=== PATIENT | male | born 1950 | race African-American/Black ===

== ENCOUNTER 2023-03-05 23:29 | Emergency (ER) | payer OTHER ==
[~2023-03-05] VITALS: Ht 177.8 cm; Wt 75.0 kg
[2023-03-06 00:11] LABS: BASOPHILS % 0.3 % (0.0-2.0); HEMATOCRIT. 41.3 % (42.0-52.0); HEMOGLOBIN. 13.9 g/dL (14.0-18.0); LYMPHOCYTES % 15.1 % (20.0-50.0); MEAN CORPUSCULAR HEMOGLOBIN 31.3 pg (28.0-32.0); MEAN CORPUSCULAR VOLUME 92.7 fL (80.0-94.0); MEAN PLATELET VOLUME 8.3 fl (7.4-10.4); MONOCYTES % 11.6 % (2.0-8.0); PLATELET 184 x1000/uL (130-400); RED BLOOD CELL COUNT 4.45 mill/uL (4.7-6.1); RED CELL DISTRIBUTION WIDTH 14.3 % (11.6-14.6)
[2023-03-06 00:13] LABS: CHLORIDE 103 mEq/L (98-107)
[2023-03-06 01:11] LABS: INR 1.5; PARTIAL THROMBOPLASTIN TIME 38.2 sec (23.4-31.0); PROTHROMBIN TIME 15.4 sec (9.6-11.0)
[2023-03-06 05:18] VITALS: BP 121/64
== END 2023-03-06 05:34 | disposition short-term general hospital (02) ==
LOC: ER 23:29
DX: R07.89 Other chest pain (principal); I10 Essential (primary) hypertension; Z86.73 Personal history of transient ischemic attack (TIA), and cerebral infarction without residual deficits
CPT/HCPCS: 36415; 71045; 80053; 83880; 84484; 85025; 93005; 99285